=== PATIENT | male | born 1940 | race Caucasian/White ===

== ENCOUNTER 2019-01-07 17:52 | Inpatient (IN) | payer MEDICARE ==
[~2019-01-07] VITALS: Ht 175.2 cm; Wt 118.5 kg
--- NOTE | ~2019-01-07 | PROC NOTE ---
[place], [place] PROCEDURE NOTE NAME: MARINO SPRINGER UNIT #: [id number] ROOM: 511 DOCTOR: ELLIE LEWIS MD,COTY BIRTHDATE: [birth year] DOS: 01/10/2019 BRONCHOSCOPY NOTE PREOPERATIVE DIAGNOSIS: Severe cough and wheezing, not resolved with current maximal medical management. POSTOPERATIVE DIAGNOSIS: Removal of thick large plugs of mucus from the endobronchial tree subsegments bilaterally. No endobronchial obstructive lesions. PROCEDURE DESCRIPTION: Informed consent was obtained. The patient was brought to the OR and placed in supine position. Conscious sedation administered by the Anesthesia Department. After that, the bronchoscope was advanced through the airway into laryngeal area. Epiglottis and vocal cords were seen, which were moving symmetrically with movements. The tracheal lumen was noted with a moderate amount of very thick mucus secretion, which was suctioned out. The tayla was seen. Right upper, right middle, right lower, left upper, lingular lower lobe bronchi all noted with impaction of very thick mucus plugs, which were removed with the help of normal saline wash, sent for cultures. Procedure was well tolerated by the patient without any difficulty. Postoperative findings were discussed with the patient's spouse in detail in the recovery room. No change in treatment immediately will be necessary. Cultures will be followed. COTY ARGUETA MD CM:PROCNOTE:PROCEDURE NOTE [id number] COTY LEWIS MD
--- NOTE | ~2019-01-07 | CON ---
[place], [place] REPORT OF CONSULTATION [id number] UN[facility] #: [id number] ROOM: 511 DOCTOR: COTY JULES MD BIRTHDATE: [birth year] DOS: 01/08/2019 PULMONARY CONSULTATION CONSULTATION REQUESTED BY: Hospitalist Services. REASON FOR CONSULTATION: To assess the patient's shortness of breath. HISTORY OF PRESENT ILLNESS: A 78-year-old white male who has been admitted to the hospital as the patient has been reporting increased respiratory symptom, which has been ongoing associated with wheezing in the past few weeks with the symptoms. The patient has been gradually progressively worsened. The patient was also complaining of cough with white sputum expectoration. The symptoms of the patient worsened at nighttime. He has been taking some medication [id number] and has not been noted with any help. He came into the Emergency Room for further assessment. The patient will be currently admitted to the hospital for further care. He has been noted reduction since respiratory symptom less than 24 hours, the resolution noted incomplete. He denies symptoms of fever or chills. Denies symptoms of any acute hemoptysis, fever or chills. REVIEW OF SYSTEMS: CONSTITUTIONAL: Does report symptoms of fatigue. There were no symptoms of fever or chills. EYES: Denies burning, redness, or tenderness. EARS, NOSE, THROAT SYMPTOMS: Denies sore throat, hoarseness, otalgia, postnasal drainage or epistaxis at this time. CARDIOVASCULAR: No anginal pain, edema, pain of the lower extremities. GASTROINTESTINAL: Dysphagia, nausea, vomiting, diarrhea, abdominal pain, hematemesis, melena, or hematochezia. SKIN: Denies any abnormal lesions or rashes. CENTRAL NERVOUS SYSTEM: Denies any headache, diplopia, or syncopal episodes. Remaining systems were reviewed, they were noted all negative. PAST MEDICAL HISTORY: Reported: 1. COPD. 2. Bronchial asthma, severity unknown. 3. Sleep apnea disorder. Has seen in my office on 11/2008 for sleep apnea disorder, but does not follow with the staff. 4. Gastroesophageal reflux. 5. Left-sided pneumothorax in 1982. 6. Hyperlipidemia. 7. Essential hypertension. 8. Osteoarthritis. 9. Stress incontinence. PAST SURGICAL HISTORY: 1. Carpal tunnel release both wrist. 2. Left shoulder surgery. 3. Electrical stimulator overactive bladder. [place], [place] REPORT OF CONSULTATION NAME: MARINO SPRINGER UNIT #: [id number] ROOM: 511 DOCTOR: COTY JULES MD BIRTHDATE: [birth year] 4. Bilateral total knee replacement. SOCIAL HISTORY: The patient is , lives at home. Denies history of alcohol use or any illicit drugs. Tobacco use noted since teenager, 2 packs of cigarettes per day, discontinued completely in 1982. FAMILY HISTORY: The patient's father at 36 years of complication of pancreatic cancer. Mother at age of 85 years of complications of lung cancer. HOME MEDICATIONS: Listed as ProAir, Norvasc, atenolol with chlorthalidone, Cymbalta, Lasix, gabapentin, Lopid, Losartan, metformin, omeprazole, loratadine, and other p.r.n. meds. CURRENT MEDICATIONS: Administered on this hospitalization were used as a Cymbalta, gabapentin, Lopid, Lovenox 40 mg, DVT prophylaxis, sliding insulin coverage, omeprazole, Solu-Medrol 40 mg 8 hours, albuterol sulfate 2.5 mg every 4 hours, Lantus insulin, Levaquin intravenously and other p.r.n. medications and Mucinex. DRUG ALLERGIES: No known drug allergies. PHYSICAL EXAMINATION: GENERAL: A 78-year-old white male currently noted awake and alert without any acute distress. Height of 5 feet 9 inches, weight of 261 pounds, BMI 38.6. VITAL SIGNS: The patient has normal temperature to 99.2 degree Fahrenheit, respiratory rate 18-20, heart rate 77-82, and blood pressure is 121/86-154/72. Pulse oxygen saturation recorded as 98% saturation at rest on room air. HEENT: Head was atraumatic. Eyes nonicterus. Decreased posterior pharyngeal space, high tongue base and crowding of soft tissue structures. CARDIOVASCULAR: S1, S2 is audible. LUNGS: Without any crackles. Expiratory wheezing noted in the lungs bilaterally. ABDOMEN: Soft, nontender and obese. EXTREMITIES: Without any acute edema. Chronic obesity findings. MUSCULOSKELETAL: Without acute deformities. CENTRAL NERVOUS SYSTEM: The patient's cranial nerves 2-12 intact. LABORATORY DATA: CBC of 01/07/2019, WBC count normal, hemoglobin 13.2, platelet count normal. CMP on admission, BUN 25, creatinine 1.55, glucose 200. LFTs were normal. Influenza A and B, nasal washing antigen negative. BMP of 320, BUN 27, creatinine 1.42, glucose 248. CBC of this morning, WBC count remains normal. Remaining CBC essentially normal. Sputum culture was ordered, not sent. The PT, PTT was noted normal. Chest x-ray 2 views that was done on this admission was personally reviewed and it shows hyperinflated lungs, tortuous aorta for this patient. Mammillation of the right hemidiaphragm for this patient. There were no acute pulmonary filtration was seen. There were no pleural fluid as well. IMPRESSION: [place], [place] REPORT OF CONSULTATION NAME: MARINO SPRINGER UNIT #: [id number] ROOM: [facility] DOCTOR: COTY JULES MD BIRTHDATE: [birth year] 1. The patient will be currently admitted to the hospital noted with acute exacerbation of chronic obstructive pulmonary disease and bronchial asthma, progressive worsening with outpatient management, which was failed. 2. The patient with chronic obesity with obstructive sleep apnea disorder. 3. History of past tobacco use. 4. Family history of lung cancer. 5. Acute kidney injury, intravascular volume depletion the reason noted partially improved at this time. PLAN OF MANAGEMENT: Continue with the current corticosteroids, bronchodilators, antibiotic, monitor results of sputum culture once available. Other therapy, plan of treatment with changes to be made based on progression of illness. Usual care, other therapy care and treatment as well as supportive care. Treatment changes including reduction of steroids will be ordered based on the progression of his illness in the next few days. COTY ARGUETA MD CM:CONSTR:REPORT OF CONSULTATION 1417 01/08/192120 interface
--- NOTE | ~2019-01-07 | PR ---
[place], [place] PROGRESS NOTE [id number] UNIT #: [id number] ROOM: 511 DOCTOR: ELLIE LEWIS MD,COTY BIRTHDATE: [birth year] DOS: 01/12/2019 SUBJECTIVE: The patient noted comfortable at this time without any acute distress, has not been noted with any ongoing acute new complaints, shortness of breath, wheezing and other symptoms have been improving gradually and progressively. There were no symptoms of chest pain, hemoptysis reported by the patient. He was continued on corticosteroids, bronchodilators, other treatment in the last 24 hours. OBJECTIVE: VITAL SIGNS: Normal temperature, respiratory rate 20, heart rate of 90, blood pressure 102/86, pulse ox saturation at rest on room air is 96% saturation. HEENT: Chronic obesity. NECK: Supple. Head was atraumatic. CARDIOVASCULAR: S1, S2 audible. LUNGS: The patient with mild expiratory wheezing, decreased reduction noted from previous examination of yesterday. ABDOMEN: Soft, nontender. Bowel sounds present. EXTREMITIES: No new changes. LABORATORY DATA: Cultures of the bronchial washing noted as normal gus. IMPRESSION: 1. Resolving acute exacerbation of bronchial asthma, acute bronchitis progressively and gradually. 2. Chronic obesity. PLAN OF MANAGEMENT: Decreased Solu-Medrol dose 40 mg b.i.d. preparation for discharge most likely tomorrow morning on oral, tapering prednisone will be recommended. All other treatment previously ongoing. Otherwise, will be continued. COTY ARGUETA MD CM:PNTRANS [id number] COTY LEWIS MD 01/22/19 0729 interface
--- NOTE | ~2019-01-07 | PR ---
[place], [place] PROGRESS NOTE [id number] UNIT #: [id number] ROOM: 511 DOCTOR: ELLIE LEWIS MD,COTY BIRTHDATE: [birth year] DOS: 01/09/2019 PULMONARY PROGRESS NOTE SUBJECTIVE: He has been still complaining of same symptoms; excessive severe chest congestion with wheezing and shortness of breath, unable to expectorate much sputum, only minimal sputum expectoration noted. Complaining of tightness in the chest as well. There were no symptoms of fever or chills reported. He denies symptoms of hemoptysis. Denies pain of the lower extremity. Denies symptoms of nausea, vomiting, diarrhea or any abdominal pain. Denies pain of the lower extremities. Remaining systems were reviewed, they were noted all negative. OBJECTIVE: VITAL SIGNS: Normal temperature this morning, respiratory rate of 20, heart rate 56, blood pressure 132/62. Pulse oxygen saturation recorded on room air is 99% saturation. HEENT: Shows head was atraumatic. Eyes nonicterus. NECK: Supple. CARDIOVASCULAR: S1, S2 audible. LUNGS: Diffuse expiratory wheezing in the lungs were noted bilaterally. ABDOMEN: Soft, nontender. Bowel sounds present. EXTREMITIES: The patient was noted without any acute edema. MUSCULOSKELETAL: Noted without any acute deformities. CENTRAL NERVOUS SYSTEM: The patient's cranial nerves 2-12 intact. LABORATORY DATA: CBC that was done this morning; WBC count of 15.3, hemoglobin 12.5, hematocrit 37.4, platelets 29,000. The BMP this morning; BUN 37, creatinine 1.42. Culture of the sputum preliminary noted normal gus. Final culture results were pending. Gram stain yesterday seen as many white blood cells, moderate epithelial cells, moderate gram-positive cocci in pairs and clusters and moderate gram-positive bacilli. IMPRESSION: The patient has been currently noted with ongoing acute exacerbation of bronchial asthma/chronic obstructive pulmonary disease. Persistent respiratory symptoms of coughing with chest congestion, inability to expectorate sputum and wheezing without any changes. PLAN OF THERAPY: The patient will be continued on bronchodilators, oxygen supplementation, and the corticosteroids. Therapeutic bronchoscopy assessed. Plan to be done tomorrow morning because of severe symptoms reported by the patient unable to expectorate any sputum. N.p.o. past midnight for bronchoscopy would be made. The patient was still noted with elevation of BUN and creatinine as compared with yesterday labs with very partial improvement noted. Hyperglycemia is also noted secondary to use of corticosteroid and history of diabetes mellitus. [place], [place] PROGRESS NOTE NAME: MARINO SPRINGER [place] UNIT #: [id number] ROOM: [facility] DOCTOR: COTY JULES MD BIRTHDATE: [birth year] COTY ARGUETA MD CM:PNTRANS 35 COTY LEWIS MD 01/09/19 2336 interface
--- NOTE | ~2019-01-07 | PR ---
[place], [place] PROGRESS NOTE NAME: MARINO SPRINGER UNIT #: [id number] ROOM: 511 DOCTOR: ELLIE LEWIS MD,COTY BIRTHDATE: [birth year] DOS: 01/11/2019 PULMONARY PROGRESS NOTE SUBJECTIVE: He has been noted comfortable at this time, resting on the bed. There were no symptoms of chest pain. Coughing has been decreasing in the intensity and frequency, but not completely resolved. Wheezing was also noted decreased, but not completely resolved. Shortness of breath occurring with exertion. Denies symptoms of fever or chills. The bronchoscopy findings was discussed with the patient as well personally. OBJECTIVE: VITAL SIGNS: For the patient this morning, normal temperature, respiratory rate 20, heart rate of 88, blood pressure 114/76. Pulse oxygen saturation recorded as 97% saturation on 2 liters nasal cannula. HEENT: Examination shows head was atraumatic. Eyes nonicterus. NECK: Supple. CARDIOVASCULAR: S1, S2 audible. LUNGS: The patient with decreased breath sounds, mild to moderate expiratory wheezing, decreased from previous examination. ABDOMEN: Soft, nontender, obese. EXTREMITIES: Chronic obesity finding without any acute changes superimposed. LABORATORY DATA: CBC of the patient this morning, WBC count of 17.7, hemoglobin 12.5. The platelet count was normal. The BMP of the patient this morning as BUN 34, creatinine was normal, glucose 225. Cultures of the bronchial washings normal gus preliminary final culture results were pending. Gram stain of the bronchial washing yesterday, moderate white blood cells, no organisms seen. IMPRESSION: The patient with resolving acute exacerbation of bronchial asthma with acute bronchitis, status post bronchoscopy, removal of multiple thick plugs of the mucus from the major airways with partial reduction in the respiratory symptoms, cultures show no bacterial growth. PLAN OF TREATMENT: Continue corticosteroids, bronchodilators, oxygen supplementation and other medical management. Depending on improvement in the respiratory symptom of the patient, may consider home discharge tomorrow. At this time, the patient receiving Solu-Medrol 40 mg every 8 hours that will be continued the same dose, the reduction would not be done today because of the current wheezing. [place], [place] PROGRESS NOTE NAME: MARINO SPRINGER UNIT #: [id number] ROOM: 511 DOCTOR: COTY JULES MD BIRTHDATE: [birth year] COTY ARGUETA MD CM:PNTRANS [phone] COTY LEWIS MD 01/22/19 0728 interface
--- NOTE | ~2019-01-07 | CON ---
[place], [place] REPORT OF CONSULTATION NAME: MARINO SPRINGER UNIT #: [id number] ROOM: 511 DOCTOR: ELLIE LEWIS MD,COTY BIRTHDATE: [birth year] DOS: 01/07/2019 The patient was noted comfortable at this time without any acute distress at this time. The patient DICTATION ENDS HERE COTY ARGUETA MD CM:CONSTR:REPORT OF CONSULTATION 1410 01/08/19 2240 interface
--- NOTE | ~2019-01-07 | PR ---
[place], [place] PROGRESS NOTE NAME: MARINO SPRINGER UNIT #: [id number] ROOM: 511 DOCTOR: ELLIE LEWIS MD,COTY BIRTHDATE: [birth year] DOS: 01/10/2019 PULMONARY PROGRESS NOTE SUBJECTIVE: The patient was noted comfortable at this time, but still noted with symptoms of cough. The patient remains excessive with audible wheezing. Denies symptoms of chest pain, shortness of breath was occurring at rest and worsened with exertion. He has not been noted symptoms of headache or diplopia, sore throat or hoarseness. Denies symptoms of nausea, vomiting, diarrhea or pain of the lower extremity, edema of the lower extremities. Respiratory symptoms remains unchanged from yesterday as well. Remaining systems were reviewed. They were noted all negative. OBJECTIVE: VITAL SIGNS: Normal temperature, respiratory rate of 20, heart rate of 73, blood pressure 140/75 to 171/84. Pulse oxygen saturation recorded as 94% saturation at rest on room air. HEENT: Chronic obesity. NECK: Supple. Head was atraumatic. CARDIOVASCULAR: S1, S2 is audible. LUNGS: The patient noted decreased breath sounds in the lungs bilaterally with severe expiratory wheezing bilaterally. ABDOMEN: Soft and obese. EXTREMITIES: Chronic obesity. No change in musculoskeletal. MUSCULOSKELETAL: Noted without any acute deformities. CENTRAL NERVOUS SYSTEM: The patient's cranial nerves 2-12 intact. LABORATORY DATA: The culture of the sputum spontaneous from 01/08/2019 shows no bacterial growth as final results. CBC, WBC count of 13.9 with hemoglobin 12.3, platelet count was normal. IMPRESSION: 1. The patient who has been currently noted with ongoing severe acute exacerbation of bronchial asthma, acute bronchitis with persistent severe coughing was noted along with wheezing, not resolving maximum medical therapy. 2. History of obstructive sleep apnea disorder. 3. Chronic obesity. PLAN OF CARE: Continuation of the current bronchodilators, oxygen supplementation, corticosteroids, Mucinex and all other treatments without any changes. Bronchoscopy was planned to be done today to assess the current nonresolving wheezing and persistent respiratory symptoms. Maximum medical management. Mucous impaction was suspected. [place], [place] PROGRESS NOTE NAME: MARINO SPRINGER UNIT #: [id number] ROOM: 511 DOCTOR: COTY JULES MD BIRTHDATE: [birth year] COTY ARGUETA MD CM:PNTRANS 1152 COTY LEWIS MD 01/11/1910 interface
--- NOTE | ~2019-01-07 | EKG ---
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
--- NOTE | ~2019-01-07 | PR ---
[place], [place] PROGRESS NOTE NAME: MARINO SPRINGER UNIT #: [id number] ROOM: 511 DOCTOR: ELLIE LEWIS MD,COTY BIRTHDATE: [birth year] DOS: 01/13/2019 PULMONARY PROGRESS NOTE SUBJECTIVE: He has been noted with progressive resolution of the respiratory symptoms. Bronchoscopy done last Sunday. Coughing has been improved markedly. The wheezing has resolved almost completely at this time as per the patient. Shortness breath was also improving. OBJECTIVE: VITAL SIGNS: Normal temperature, respiratory rate 18, heart rate 99, blood pressure 139/70, pulse oxygen saturation on room air 95% saturation. HEENT: Head was atraumatic. Eyes nonicterus. NECK: Supple. CARDIOVASCULAR SYSTEM: S1, S2 is audible. LUNGS: Occasional wheezing, no crackles. ABDOMEN: Soft and nontender. EXTREMITIES: Minimal edema. IMPRESSION: 1. The patient with resolution of acute exacerbation of bronchial asthma, acute bronchitis, now onset. 2. Obstructive sleep apnea disorder, known previously. 3. Chronic obesity. PLAN OF TREATMENT: Discharge plan for the patient with oral antibiotics, bronchodilators, and others. Outpatient followup was suggested postdischarge for comprehensive assessment of the pulmonary disease and the sleep apnea disorder. COTY ARGUETA MD CM:PNTRANS [id number] COTY LEWIS MD 01/14/19 0420 interface
--- NOTE | ~2019-01-07 | EKG ---
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
[2019-01-07 17:53] VITALS: BP 121/86
[2019-01-07 19:08] LABS: BASO % 0.3 % (0.0-1.0); EOS % 0.5 % (1.0-4.0); HEMATOCRIT 38.9 % (42.0-52.0); HEMOGLOBIN 13.2 g/dl (14.0-18.0); LYMPH # 1.3 10*3/uL (1.3-4.4); LYMPH % 14.9 % (27.0-41.0); MEAN CORPUSCULAR HGB 31.2 pg (27.0-31.0); MEAN CORPUSCULAR HGB CONC 33.9 g/dl (33.0-37.0); MEAN PLATELET VOLUME 11.2 fl (9.6-12.3); MONO # 1.2 10*3/uL (0.1-1.0); MONO % 13.3 % (3.0-9.0); NEUT # 6.1 10*3/uL (2.3-7.9); NEUT % 70.4 % (47.0-73.0); PLATELET COUNT AUTOMATED 297 10*3/uL (130-400); RED BLOOD COUNT 4.23 10*6/uL (4.50-5.90); WHITE BLOOD COUNT 8.6 10*3/uL (4.8-10.8)
[2019-01-07 19:33] LABS: ALBUMIN 3.9 gm/dl (3.1-4.5); CREATININE 1.55 mg/dL (0.70-1.30); POTASSIUM 4.3 mmol/L (3.5-5.1); TOTAL PROTEIN 8.1 gm/dL (6.4-8.2)
[2019-01-07 20:00] VITALS: BP 161/58
[2019-01-07 20:58] VITALS: BP 124/68
[2019-01-07] MEDS ORDERED: LOSARTAN POTAS100 M1 PO (21:27)
[2019-01-07] MEDS ORDERED: METFORMIN HYD1000 MG PO (21:28)
[2019-01-07] MEDS ORDERED: FUROSEMIDE20 M1 PO (21:29)
[2019-01-07] MEDS ORDERED: TOLTERODINE TART2 M2 PO (21:30)
[2019-01-07] MEDS ORDERED: OMEPRAZOLE D/R20 MG PO (21:31)
[2019-01-07] MEDS ORDERED: GEMFIBROZIL600 MG PO (21:33)
[2019-01-07] MEDS ORDERED: DULOXETINE HCL60 MG PO (21:34)
[2019-01-07] MEDS ORDERED: GABAPENTIN600 MG PO (21:34)
[2019-01-07] MEDS ORDERED: ATENOLOL-CHLOR1 EAC1 PO (21:36)
[2019-01-07] MEDS ORDERED: AMLODIPINE BESYL5 MG PO (21:37)
[2019-01-07] MEDS ORDERED: PROAIR HFA8.5 GM INH (21:39)
[2019-01-07] MEDS ORDERED: LANTUS SOL100 UNIT/1 SQ (21:43)
[2019-01-07] MEDS ORDERED: HUMALOG100 UNIT/2 SQ (21:43)
[2019-01-08] VITALS: BP 128/66
[2019-01-08] MEDS ORDERED: RAPAFLO8 MG PO (03:24)
[2019-01-08 06:55] LABS: BASO % 0.1 % (0.0-1.0); HEMATOCRIT 37.2 % (42.0-52.0); HEMOGLOBIN 12.6 g/dl (14.0-18.0); LYMPH # 0.7 10*3/uL (1.3-4.4); MEAN CELL VOLUME 91.9 fl (80.0-94.0); MEAN CORPUSCULAR HGB 31.1 pg (27.0-31.0); MEAN CORPUSCULAR HGB CONC 33.9 g/dl (33.0-37.0); MEAN PLATELET VOLUME 11.7 fl (9.6-12.3); MONO # 0.2 10*3/uL (0.1-1.0); MONO % 2.3 % (3.0-9.0); NEUT # 6.4 10*3/uL (2.3-7.9); NEUT % 87.9 % (47.0-73.0); PLATELET COUNT AUTOMATED 285 10*3/uL (130-400); RED BLOOD COUNT 4.05 10*6/uL (4.50-5.90); WHITE BLOOD COUNT 7.3 10*3/uL (4.8-10.8)
[2019-01-08 07:14] LABS: CREATININE 1.42 mg/dL (0.70-1.30); PHOSPHOROUS 3.2 mg/dL (2.5-4.9); POTASSIUM 3.9 mmol/L (3.5-5.1)
[2019-01-08 07:27] LABS: FREE T4 0.9 ng/dl (0.76-1.46); THYROID STIM HORMONE (HS) 0.716 uIU/ml (0.358-4.75)
[2019-01-08 07:41] LABS: VITAMIN D, 25-HYDROXY 22.3 ng/mL (30-100)
[2019-01-08 08:24] LABS: ACT PARTIAL THROMBO TIME 21.9 SECONDS (20.8-31.5)
[2019-01-08 12:00] VITALS: BP 154/72
[2019-01-08 16:00] VITALS: BP 144/64
[2019-01-08 20:00] VITALS: BP 133/65
[2019-01-09] VITALS: BP 117/57
[2019-01-09 06:48] LABS: BASO % 0.1 % (0.0-1.0); HEMATOCRIT 37.4 % (42.0-52.0); HEMOGLOBIN 12.5 g/dl (14.0-18.0); LYMPH % 6.2 % (27.0-41.0); MEAN CELL VOLUME 91.2 fl (80.0-94.0); MEAN CORPUSCULAR HGB 30.5 pg (27.0-31.0); MEAN CORPUSCULAR HGB CONC 33.4 g/dl (33.0-37.0); MEAN PLATELET VOLUME 11.4 fl (9.6-12.3); MONO # 1.1 10*3/uL (0.1-1.0); MONO % 7.3 % (3.0-9.0); NEUT # 13.1 10*3/uL (2.3-7.9); NEUT % 85.7 % (47.0-73.0); PLATELET COUNT AUTOMATED 309 10*3/uL (130-400); RED CELL DISTRI WIDTH 13.2 % (0-14.5); WHITE BLOOD COUNT 15.3 10*3/uL (4.8-10.8)
[2019-01-09 07:07] LABS: CREATININE 1.42 mg/dL (0.70-1.30)
[2019-01-09 08:01] VITALS: BP 132/62
[2019-01-09 12:00] VITALS: BP 136/83
[2019-01-09 16:00] VITALS: BP 144/64
[2019-01-09 20:00] VITALS: BP 171/84
[2019-01-10] VITALS (8 sets, daily range): BP systolic 111–158; BP diastolic 63–87
[2019-01-10 06:15] LABS: BASO % 0.1 % (0.0-1.0); HEMATOCRIT 37.3 % (42.0-52.0); HEMOGLOBIN 12.3 g/dl (14.0-18.0); LYMPH # 0.8 10*3/uL (1.3-4.4); MEAN CELL VOLUME 92.1 fl (80.0-94.0); MEAN CORPUSCULAR HGB 30.4 pg (27.0-31.0); MEAN PLATELET VOLUME 11.3 fl (9.6-12.3); MONO % 6.8 % (3.0-9.0); NEUT # 11.8 10*3/uL (2.3-7.9); NEUT % 85.2 % (47.0-73.0); PLATELET COUNT AUTOMATED 295 10*3/uL (130-400); RED BLOOD COUNT 4.05 10*6/uL (4.50-5.90); RED CELL DISTRI WIDTH 13.2 % (0-14.5); WHITE BLOOD COUNT 13.9 10*3/uL (4.8-10.8)
[2019-01-10 06:44] LABS: BUN 39 mg/dl (7-24); CHLORIDE 104 mmol/L (98-107); CREATININE 1.22 mg/dL (0.70-1.30); POTASSIUM 4.1 mmol/L (3.5-5.1); SODIUM 139 mmol/L (136-145)
[2019-01-11] VITALS: BP 124/54
[2019-01-11 06:40] LABS: BASO % 0.1 % (0.0-1.0); HEMATOCRIT 37.5 % (42.0-52.0); HEMOGLOBIN 12.5 g/dl (14.0-18.0); LYMPH # 0.7 10*3/uL (1.3-4.4); MEAN CELL VOLUME 91.5 fl (80.0-94.0); MEAN CORPUSCULAR HGB 30.5 pg (27.0-31.0); MEAN CORPUSCULAR HGB CONC 33.3 g/dl (33.0-37.0); MEAN PLATELET VOLUME 11.4 fl (9.6-12.3); MONO # 1.2 10*3/uL (0.1-1.0); MONO % 6.5 % (3.0-9.0); NEUT # 15.6 10*3/uL (2.3-7.9); NEUT % 88.4 % (47.0-73.0); PLATELET COUNT AUTOMATED 316 10*3/uL (130-400); RED CELL DISTRI WIDTH 13.2 % (0-14.5); WHITE BLOOD COUNT 17.7 10*3/uL (4.8-10.8)
[2019-01-11 07:21] LABS: BUN 34 mg/dl (7-24); CHLORIDE 101 mmol/L (98-107); POTASSIUM 3.9 mmol/L (3.5-5.1); SODIUM 135 mmol/L (136-145)
[2019-01-11 07:24] LABS: CREATININE 1.26 mg/dL (0.70-1.30)
[2019-01-11 08:00] VITALS: BP 114/76
[2019-01-11 12:00] VITALS: BP 122/70
[2019-01-11 13:04] LABS: ACID FAST SPEC PROCESSING Concentration (.)
[2019-01-11 16:00] VITALS: BP 158/91
[2019-01-11 20:00] VITALS: BP 113/58
[2019-01-12] VITALS: BP 154/78
[2019-01-12 06:20] LABS: HEMATOCRIT 37.9 % (42.0-52.0); HEMOGLOBIN 12.6 g/dl (14.0-18.0); MEAN CELL VOLUME 91.3 fl (80.0-94.0); MEAN CORPUSCULAR HGB 30.4 pg (27.0-31.0); MEAN CORPUSCULAR HGB CONC 33.2 g/dl (33.0-37.0); MEAN PLATELET VOLUME 11.4 fl (9.6-12.3); PLATELET COUNT AUTOMATED 320 10*3/uL (130-400); RED BLOOD COUNT 4.15 10*6/uL (4.50-5.90); RED CELL DISTRI WIDTH 13.2 % (0-14.5); WHITE BLOOD COUNT 14.6 10*3/uL (4.8-10.8)
[2019-01-12 06:49] LABS: BUN 36 mg/dl (7-24); CHLORIDE 104 mmol/L (98-107); SODIUM 139 mmol/L (136-145)
[2019-01-12 07:14] LABS: TOTAL CELLS COUNTED 100 #CELLS
[2019-01-12 07:15] LABS: PLATELET SUFFICIENCY NORMAL (NORMAL)
[2019-01-12 08:00] VITALS: BP 102/86
[2019-01-12 12:00] VITALS: BP 130/71
[2019-01-12 15:53] VITALS: BP 142/78; BP 150/88
[2019-01-12 20:00] VITALS: BP 140/63
[2019-01-13] VITALS: BP 140/67
[2019-01-13 07:03] LABS: HEMATOCRIT 37.8 % (42.0-52.0); HEMOGLOBIN 12.6 g/dl (14.0-18.0); MEAN CELL VOLUME 90.6 fl (80.0-94.0); MEAN CORPUSCULAR HGB 30.2 pg (27.0-31.0); MEAN CORPUSCULAR HGB CONC 33.3 g/dl (33.0-37.0); MEAN PLATELET VOLUME 11.3 fl (9.6-12.3); NUCLEATED RED BLOOD CELL 0.1 % (0.0-0.0); PLATELET COUNT AUTOMATED 345 10*3/uL (130-400); RED BLOOD COUNT 4.17 10*6/uL (4.50-5.90); WHITE BLOOD COUNT 14.4 10*3/uL (4.8-10.8)
[2019-01-13 07:26] LABS: BUN 33 mg/dl (7-24); CHLORIDE 103 mmol/L (98-107); CREATININE 1.09 mg/dL (0.70-1.30); POTASSIUM 4.2 mmol/L (3.5-5.1); SODIUM 137 mmol/L (136-145)
[2019-01-13 08:00] VITALS: BP 157/90
[2019-01-13 08:03] LABS: PLATELET SUFFICIENCY NORMAL (NORMAL); TOTAL CELLS COUNTED 100 #CELLS
[2019-01-13] MEDS ORDERED: DOXYCYCLINE100 M3 PO (11:42)
[2019-01-13] MEDS ORDERED: PREDNISONE10 MG PO (11:42)
[2019-01-13 12:00] VITALS: BP 139/70
[2019-02-20 09:10] LABS: ACID FAST CULTURE Negative (.)
== END 2019-01-13 13:25 | disposition home or self-care (01) | DRG 682 ==
LOC: ED 17:52 → EDHOLD 20:16 → 5E 20:16
PROVIDERS: Emergency Medicine; Internal Medicine; Internal Medicine Critical Care Medicine; Internal Medicine Nephrology; Student in an Organized Health Care Education/Training Program; ADMIT Internal Medicine
DX: N17.0 Acute kidney failure with tubular necrosis (principal); J18.9 Pneumonia, unspecified organism; J44.1 Chronic obstructive pulmonary disease with (acute) exacerbation; J44.0 Chronic obstructive pulmonary disease with (acute) lower respiratory infection; J45.901 Unspecified asthma with (acute) exacerbation; T17.490A Other foreign object in trachea causing asphyxiation, initial encounter; T17.590A Other foreign object in bronchus causing asphyxiation, initial encounter; D72.810 Lymphocytopenia; D64.9 Anemia, unspecified; E66.01 Morbid (severe) obesity due to excess calories; M19.90 Unspecified osteoarthritis, unspecified site; K21.9 Gastro-esophageal reflux disease without esophagitis; E78.5 Hyperlipidemia, unspecified; I10 Essential (primary) hypertension; E11.65 Type 2 diabetes mellitus with hyperglycemia; M79.2 Neuralgia and neuritis, unspecified; F32.9 Major depressive disorder, single episode, unspecified; G47.30 Sleep apnea, unspecified; J20.9 Acute bronchitis, unspecified; G47.33 Obstructive sleep apnea (adult) (pediatric); X58.XXXA Exposure to other specified factors, initial encounter; N32.81 Overactive bladder; Z96.653 Presence of artificial knee joint, bilateral; Z87.891 Personal history of nicotine dependence; Z80.1 Family history of malignant neoplasm of trachea, bronchus and lung; Z79.4 Long term (current) use of insulin; Z79.899 Other long term (current) drug therapy; Y93.89 Activity, other specified; Y92.89 Other specified places as the place of occurrence of the external cause; Y99.8 Other external cause status; Z68.38 Body mass index [BMI] 38.0-38.9, adult

== ENCOUNTER 2019-07-06 18:38 | Inpatient (IN) | payer MEDICARE ==
[~2019-07-06] VITALS: Ht 175.2 cm; Wt 109.5 kg
--- NOTE | ~2019-07-06 | EKG ---
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
--- NOTE | ~2019-07-06 | CON ---
[place], [place] REPORT OF CONSULTATION NAME[id number]IT #: [id number] ROOM: 411 DOCTOR: GERBER PEPPER MD BIRTHDATE: [birth year] DOS: 07/08/2019 CHIEF COMPLAINT: "Oh, I've just been so depressed, I am not myself." HISTORY OF PRESENT ILLNESS: This is a 79-year-old male admitted due to uncontrolled insulin-dependent diabetes. The patient additionally reports ongoing depression for several months. During this period of time, he endorses multiple neurovegetative symptoms including poor sleep with difficulty falling asleep, sleep continuity disturbance, brace end mainspring former awakening, marked anergia, anhedonia, hopeless and helpless feelings, crying spells, inability to cope, and fluctuation in appetite. The patient reports he absolutely has no get up and go and fatigues very easily. He does endorse having been on an antidepressant in the past and actually is on Cymbalta, but he did not remember this. The patient is willing to allow me to make medication adjustments. MENTAL STATUS: He is alert and oriented. Mood does seem to be overwhelmingly depressed and multiple neurovegetative symptoms are seen. He is rather flat, blunted, and anergic in presentation. While having fleeting suicidal thoughts, he very consistently and vehemently denies any active suicidality and states he would never do such a thing. There is no hypomania or raul present. There are no psychotic symptoms present. Memory has mild gaps, but for the most part, he is intact. DIAGNOSIS: Major depression, recurrent. PLAN: I will discontinue his Cymbalta in lieu of Remeron 15 mg at bedtime. Additionally, screening examinations that have already been done have revealed a low normal vitamin B12 level of 272, which I will treat with vitamin B12 injection of 1000 mcg monthly. I will also check a vitamin D level just to finish any organic workup. I would recommend he followup in my office in [place] and I did discuss this with him and he nodded in approval. Should you require further intervention, please feel free to consult me at any time. GERBER PEPPER MD CM:CONSTR:REPORT OF CONSULTATION 1020 07/08/19 2246 interface
[~2019-07-06 18:38] MED LIST: AMLODIPINE BESYL5 MG PO; ATENOLOL-CHLOR1 EAC1 PO; DOXYCYCLINE100 M3 PO; DULOXETINE HCL60 MG PO; FUROSEMIDE20 M1 PO; GABAPENTIN600 MG PO; GEMFIBROZIL600 MG PO; HUMALOG100 UNIT/2 SQ; LANTUS SOL100 UNIT/1 SQ; LOSARTAN POTAS100 M1 PO; METFORMIN HYD1000 MG PO; OMEPRAZOLE D/R20 MG PO; PREDNISONE10 MG PO; PROAIR HFA8.5 GM INH; RAPAFLO8 MG PO; TOLTERODINE TART2 M2 PO
[2019-07-06 18:48] VITALS: BP 131/69
[2019-07-06 19:22] LABS: HEMATOCRIT 41.9 % (42.0-52.0); HEMOGLOBIN 14.6 g/dl (14.0-18.0); MEAN CELL VOLUME 89.1 fl (80.0-94.0); MEAN CORPUSCULAR HGB 31.1 pg (27.0-31.0); MEAN CORPUSCULAR HGB CONC 34.8 g/dl (33.0-37.0); MEAN PLATELET VOLUME 12.1 fl (9.6-12.3); PLATELET COUNT AUTOMATED 331 10*3/uL (130-400); RED CELL DISTRI WIDTH 12.5 % (0-14.5); WHITE BLOOD COUNT 18.4 10*3/uL (4.8-10.8)
[2019-07-06 19:32] LABS: ACT PARTIAL THROMBO TIME 22.9 SECONDS (20.0-32.1); INTERNATIONAL NORM RATIO 0.9 (2.0-3.5)
[2019-07-06 19:40] LABS: ALBUMIN 3.8 gm/dl (3.1-4.5); ALKALINE PHOSPHATASE 121 U/L (45-117); BUN 33 mg/dl (7-24); CHLORIDE 88 mmol/L (98-107); CREATININE 2.12 mg/dL (0.70-1.30); LIPASE 117 U/L (73-393); POTASSIUM 3.9 mmol/L (3.5-5.1); SGOT/AST 19 IU/L (3-35); SGPT/ALT 43 U/L (12-78); SODIUM 128 mmol/L (136-145); TOTAL PROTEIN 8.3 gm/dL (6.4-8.2)
[2019-07-06 19:42] LABS: TROPONIN I < 0.015 ng/ml (<0.045)
[2019-07-06 19:43] LABS: PLATELET SUFFICIENCY NORMAL (NORMAL); TOTAL CELLS COUNTED 100 #CELLS
[2019-07-06 20:00] VITALS: BP 132/87
[2019-07-06 21:25] LABS: BILIRUBIN NEGATIVE (NEGATIVE); BLOOD TRACE-INTACT (NEGATIVE); CLARITY CLEAR (CLEAR); COLOR YELLOW (YELLOW); GLUCOSE 3+ (NEGATIVE); KETONE NEGATIVE (NEGATIVE); LEUKO ESTERASE NEGATIVE (NEGATIVE); NITRITE NEGATIVE (NEGATIVE); UROBILINOGEN 0.2 E.U./dl (0.2-1.0)
[2019-07-06 21:59] LABS: CREATININE 2.09 mg/dL (0.70-1.30); POTASSIUM 3.7 mmol/L (3.5-5.1)
[2019-07-07] VITALS (7 sets, daily range): BP systolic 123–137; BP diastolic 72–88
[2019-07-07 06:02] LABS: MEAN CELL VOLUME 88.9 fl (80.0-94.0); MEAN CORPUSCULAR HGB 30.4 pg (27.0-31.0); MEAN CORPUSCULAR HGB CONC 34.1 g/dl (33.0-37.0); MEAN PLATELET VOLUME 12.1 fl (9.6-12.3); PLATELET COUNT AUTOMATED 302 10*3/uL (130-400); RED BLOOD COUNT 4.61 10*6/uL (4.50-5.90); RED CELL DISTRI WIDTH 12.6 % (0-14.5); WHITE BLOOD COUNT 13.9 10*3/uL (4.8-10.8)
[2019-07-07 06:18] LABS: ALBUMIN 3.5 gm/dl (3.1-4.5); CREATININE 1.53 mg/dL (0.70-1.30); PHOSPHOROUS 3.4 mg/dL (2.5-4.9); TOTAL PROTEIN 7.6 gm/dL (6.4-8.2)
[2019-07-07 06:43] LABS: BASOPHILS 1 % (0-1); PLATELET SUFFICIENCY NORMAL (NORMAL); TOTAL CELLS COUNTED 100 #CELLS
--- NOTE | 2019-07-07 07:42 | NUR ---
ASSUMED CARE OF PATIENT. UPON ENTERING ROOM, IS ASLEEP. AWAKENED EASILY TO NAME. ASSISTED TO CHANGE BRIEF AND BED LINENE DUE TO HEAVY URINAY INCONTINENCE. URINAL EMPTIED AND I&O RECORDED. HAS NO APPETITE AND DOES NOT WANT BREAKFAST AT THIS TIME. UPDATED AND AWAITING ROOM ASSIGNMENT. DOES TAKE HIS OXYGEN OFF AN ON. REPORTS HE DOES NOT WEAR IT IN THE DAYTIME AT HOME. NEURO: A&O X 4 RESP: REG, EASY, CLEAR CARDIAC: S1, S2, REGULAR ABD: SOFT, NONTENDER, NORMOACTIVE BOWEL SOUNDS X 4, LOSS OF APPETITE-DENIES NAUSEA SKIN: PINK, WARM, DRY
--- NOTE | 2019-07-07 07:47 | NUR ---
BGL 270.
--- NOTE | 2019-07-07 08:21 | NUR ---
CALL PLACED TO PHARMACY REGARDING NEED FOR HUMALOG DOSE. SPOKE WITH TI AND SHE WILL SEND.
--- NOTE | 2019-07-07 08:53 | NUR ---
CONTINUE TO AWAIT HUMALOG FROM PHARMACY. CALL PLACED TO SATISH TO NOTIFY OF ETA.
--- NOTE | 2019-07-07 09:07 | NUR ---
A 79yr old male, admitted to 4E, under the services of MIKIE Lopez DO with a diagnosis of Acute tubular necrosis, acute renal failure. Chief complaint is feeling weak with no appetite and >20 pound wt loss in 2 weeks. Patient arrived via stretcher from ER. Initial assessment completed. Vital signs taken and recorded. MIKIE LOPEZ DO notified of admission to the unit. Orders were placed electronically last night while pt in ED Hold. See assessment for past medical history, medications and allergies. Patient and/or family oriented to unit. [facility] visitation policy reviewed. Clothing/patient valuable form completed. IV fluids initiated per order of 07/06 at 2023. SATISH GOLDMAN L
--- NOTE | 2019-07-07 09:08 | NUR ---
UPDATED ON ROOM ASSIGNMENT AND UPDATED ON ROOM WELL PER PATIENT REQUEST.
--- NOTE | 2019-07-07 13:44 | NUR ---
Customer Marketing Intern in to talk to patient. Patient states lives at HOME with . There are BASEMENT steps in the home. Physician: BRAD Pharmacy: [facility] health services: NONE Patient's level of ADLs: INDEPENDENT Patient has working utilities: YES DME: [facility] [employer] ALSO HAS WALKER IF HE NEEDS IT Follow-up physician's appointment after d/c: WILL BE MADE BY HOSPITALIST NURSE DIRECTOR ON DISCHARGE Does patient want to access PORTAL?: NO Discharge plan PT LIVES AT HOME WITH HIS AND IS INDEPENDENT IN HER CARE. STATES HE WILL RETURN HOME ON DISCHARGE WITH NO NEEDS. WILL CONTINUE TO FOLLOW. WILL HAVE A RIDE HOME PER PT.. YAIR ARIAS
--- NOTE | 2019-07-07 13:46 | NUR ---
HAS ARRIVED AND PT'S MED RECONCILIATION DONE.
--- NOTE | 2019-07-07 14:04 | NUR ---
DR SEARS NOTIFIED THAT MED REC IS COMPLETE.
--- NOTE | 2019-07-07 14:21 | NUR ---
DR SEARS HAS BEEN IN TO SEE PT.
[2019-07-08] VITALS: BP 128/79
[2019-07-08 07:28] LABS: BASO # 0.1 10*3/uL (0.0-0.1); BASO % 0.8 % (0.0-1.0); EOS # 0.3 10*3/uL (0.0-0.4); EOS % 3.6 % (1.0-4.0); HEMATOCRIT 38.9 % (42.0-52.0); HEMOGLOBIN 13.1 g/dl (14.0-18.0); LYMPH # 1.9 10*3/uL (1.3-4.4); LYMPH % 19.9 % (27.0-41.0); MEAN CELL VOLUME 90.3 fl (80.0-94.0); MEAN CORPUSCULAR HGB 30.4 pg (27.0-31.0); MEAN CORPUSCULAR HGB CONC 33.7 g/dl (33.0-37.0); MEAN PLATELET VOLUME 12.1 fl (9.6-12.3); MONO # 1.5 10*3/uL (0.1-1.0); MONO % 15.8 % (3.0-9.0); NEUT # 5.5 10*3/uL (2.3-7.9); NEUT % 58.8 % (47.0-73.0); PLATELET COUNT AUTOMATED 291 10*3/uL (130-400); RED BLOOD COUNT 4.31 10*6/uL (4.50-5.90); RED CELL DISTRI WIDTH 12.4 % (0-14.5); WHITE BLOOD COUNT 9.4 10*3/uL (4.8-10.8)
--- NOTE | 2019-07-08 07:35 | NUR ---
Shift chart check completed.24 HR chart check completed. Patient awake during bedside report from Yuniel. Bed is in low position, locked, and bed exit alarm activated. IV fluids infusing at 125/hr. Patient in no distress during report.
[2019-07-08 07:59] LABS: ALBUMIN 3.3 gm/dl (3.1-4.5); ALKALINE PHOSPHATASE 89 U/L (45-117); BUN 25 mg/dl (7-24); CHLORIDE 99 mmol/L (98-107); PHOSPHOROUS 2.5 mg/dL (2.5-4.9); POTASSIUM 2.9 mmol/L (3.5-5.1); SGOT/AST 47 IU/L (3-35); SGPT/ALT 44 U/L (12-78); SODIUM 135 mmol/L (136-145); TOTAL PROTEIN 7.4 gm/dL (6.4-8.2)
[2019-07-08 08:00] VITALS: BP 138/76
--- NOTE | 2019-07-08 08:58 | NUR ---
PHYSICAL THERAPY Nursing screen received and chart reviewed. Recommend PT evaluation if decline in functional mobility presents. Thank you. Pat Aj,PT,DPT
--- NOTE | 2019-07-08 09:08 | NUR ---
Nursing screen received and chart reviewed. Patient admitted with acute tubular necrosis and acute renal failure. If patient should have a decline in ADLs then please refer to occupational therapy. Thank you. Rachana Bell OTR/L
--- NOTE | 2019-07-08 09:08 | NUR ---
PHYSICAL THERAPY Nursing screen received and chart reviewed. Physical therapy order received. Thank you. Pat Aj,PT,DPT
--- NOTE | 2019-07-08 09:13 | NUR ---
DOMINIK CROOK) NOTIFIED DR LEUNG CONSULT.
--- NOTE | 2019-07-08 09:47 | NUR ---
DOMINIK CALLED BACK. DR LEUNG HAS CALLED OFF FOR TODAY. DR PEPPER CONSULT ENTERED SO HE CAN SEE THE PATIENT.
--- NOTE | 2019-07-08 10:41 | NUR ---
DR PEPPER HAS VISITED. IV FLUIDS COMPLETED AND D/C. PT AMBULATORY WITH STEADY GAIT TO BR, CLAIMS BM AND URINE.
--- NOTE | 2019-07-08 11:00 | NUR ---
PHYSICAL THERAPY Physical therapy evaluation completed. Full details and evaluation to follow. Low complexity skilled PT evaluation performed (17023). PT will work on strength, gait, and balance per POC. Recommend home with home health at discharge. Thank you, Gaby Tuttle, SPT Pat Aj,PT,DPT.
[2019-07-08] MEDS ORDERED: MIRTAZAPINE15 M2 PO (11:51)
[2019-07-08] MEDS ORDERED: VITAMIN D22000 UNIT PO (11:51)
[2019-07-08 12:00] VITALS: BP 121/67
--- NOTE | 2019-07-08 12:37 | NUR ---
PT CONTINUES TO DENY NEEDS AT HOME. WILL CONTINUE TO FOLLOW.
--- NOTE | 2019-07-08 13:10 | NUR ---
PT INFORMED THAT HE WILL BE DISCHARGED TO HOME WHEN HIS ARRIVES. HE'S VERY HAPPY. HE SAYS HIS WILL BE HERE WHEN SHE'S DONE BOWLING.
--- NOTE | 2019-07-08 14:08 | NUR ---
DISCHARGE INSTRUCTIONS TO PT AND HIS . SHE UNDERSTANDS SHE NEEDS TO STOP AT [facility] IN [place] TO MANAGER HOME PRESCRIPTIONS AND SHE NEEDS TO CALL DR SALINAS FOR A FOLLOW UP APPOINTMENT.
== END 2019-07-08 14:24 | disposition home or self-care (01) | DRG 637 ==
LOC: ED 18:38 → 4E 19:59 → EDHOLD 19:59 → 4E 07-07 07:28
PROVIDERS: Family Medicine; Student in an Organized Health Care Education/Training Program; ADMIT Emergency Medicine
DX: E11.65 Type 2 diabetes mellitus with hyperglycemia (principal); N17.0 Acute kidney failure with tubular necrosis; R65.10 Systemic inflammatory response syndrome (SIRS) of non-infectious origin without acute organ dysfunction; F33.1 Major depressive disorder, recurrent, moderate; E87.1 Hypo-osmolality and hyponatremia; E87.2 Acidosis; E86.0 Dehydration; N32.81 Overactive bladder; E66.9 Obesity, unspecified; M19.90 Unspecified osteoarthritis, unspecified site; J44.9 Chronic obstructive pulmonary disease, unspecified; K21.9 Gastro-esophageal reflux disease without esophagitis; E78.5 Hyperlipidemia, unspecified; I10 Essential (primary) hypertension; Z96.653 Presence of artificial knee joint, bilateral; E66.01 Morbid (severe) obesity due to excess calories; G47.33 Obstructive sleep apnea (adult) (pediatric); E87.8 Other disorders of electrolyte and fluid balance, not elsewhere classified; E87.6 Hypokalemia; E11.40 Type 2 diabetes mellitus with diabetic neuropathy, unspecified; Z79.4 Long term (current) use of insulin; Z91.81 History of falling; Z87.01 Personal history of pneumonia (recurrent); Z87.891 Personal history of nicotine dependence; Z80.1 Family history of malignant neoplasm of trachea, bronchus and lung; Z83.79 Family history of other diseases of the digestive system; Z81.2 Family history of tobacco abuse and dependence; Z79.899 Other long term (current) drug therapy; Z68.34 Body mass index [BMI] 34.0-34.9, adult

== ENCOUNTER 2023-11-21 14:21 | Emergency (ER) | payer MEDICARE ==
[~2023-11-21] VITALS: Wt 114.3 kg
[~2023-11-21 14:21] MED LIST changes: +MIRTAZAPINE15 M2 PO; +VITAMIN D22000 UNIT PO
[2023-11-21 15:40] LABS: BASO # 0.1 10*3/uL (0.0-0.1); BASO % 0.8 % (0.0-1.0); EOS # 0.5 10*3/uL (0.0-0.4); LYMPH # 1.5 10*3/uL (1.3-4.4); LYMPH % 18.1 % (27.0-41.0); MEAN CELL VOLUME 92.5 fl (80.0-94.0); MEAN CORPUSCULAR HGB 30.4 pg (27.0-31.0); MEAN CORPUSCULAR HGB CONC 32.9 g/dl (33.0-37.0); MEAN PLATELET VOLUME 11.7 fl (9.6-12.3); MONO # 1.4 10*3/uL (0.1-1.0); MONO % 16.9 % (3.0-9.0); NEUT # 4.9 10*3/uL (2.3-7.9); NEUT % 57.6 % (47.0-73.0); PLATELET COUNT AUTOMATED 328 10*3/uL (130-400); RED BLOOD COUNT 4.54 10*6/uL (4.50-5.90); RED CELL DISTRI WIDTH 13.1 % (0-14.5); WHITE BLOOD COUNT 8.5 10*3/uL (4.8-10.8)
[2023-11-21 15:50] LABS: ACT PARTIAL THROMBO TIME 24.3 SECONDS (20.0-32.1)
[2023-11-21 16:15] LABS: BILIRUBIN Negative (Negative); BLOOD Negative (Negative); CLARITY Clear (Clear); COLOR Yellow (Yellow); GLUCOSE 3+ (Negative); KETONE Trace (Negative); LEUKO ESTERASE Negative (Negative); NITRITE Negative (Negative); PH 5.5 (4.5-8.0)
[2023-11-21 16:16] LABS: ALKALINE PHOSPHATASE 94 U/L (46-116); BUN 22 mg/dl (9-23); CHLORIDE 106 mmol/L (98-107); CPK 58 U/L (34-171); POTASSIUM 3.8 mmol/L (3.4-5.1); SGPT/ALT 32 U/L (5-49); TOTAL PROTEIN 7.4 gm/dL (6.0-8.0)
== END 2023-11-21 16:56 | disposition home or self-care (01) ==
LOC: ED 14:21
PROVIDERS: Nurse Practitioner Family
DX: S39.012A Strain of muscle, fascia and tendon of lower back, initial encounter (principal); S80.02XA Contusion of left knee, initial encounter; S09.8XXA Other specified injuries of head, initial encounter; S49.92XA Unspecified injury of left shoulder and upper arm, initial encounter; E78.00 Pure hypercholesterolemia, unspecified; K21.9 Gastro-esophageal reflux disease without esophagitis; E11.65 Type 2 diabetes mellitus with hyperglycemia; E87.8 Other disorders of electrolyte and fluid balance, not elsewhere classified; E87.6 Hypokalemia; E87.1 Hypo-osmolality and hyponatremia; J44.9 Chronic obstructive pulmonary disease, unspecified; D64.9 Anemia, unspecified; M19.90 Unspecified osteoarthritis, unspecified site; E11.22 Type 2 diabetes mellitus with diabetic chronic kidney disease; I12.9 Hypertensive chronic kidney disease with stage 1 through stage 4 chronic kidney disease, or unspecified chronic kidney disease; N18.9 Chronic kidney disease, unspecified; Z98.890 Other specified postprocedural states; Z96.653 Presence of artificial knee joint, bilateral; Z87.891 Personal history of nicotine dependence; W19.XXXA Unspecified fall, initial encounter; Y93.89 Activity, other specified; Y92.89 Other specified places as the place of occurrence of the external cause; Y99.8 Other external cause status